=== PATIENT | female | born 1950 | race Caucasian/White ===

== ENCOUNTER → 2019-05-03 10:49 | Outpatient (CLI) | payer SELFPAY ==
--- NOTE | 2019-05-03 10:53 | CT_ITS ---
PROCEDURE: CT HEART W CALCIUM SCORE CLINICAL HISTORY: SCREENING COMPARISON: No exams were available for comparison TECHNIQUE: Axial images obtained with sagittal and coronal reformats. All CT scans at the facility use one or more dose reduction, viz: automated exposure control, ma/kV adjustment per patient size (including targeted exams where dose is matched to indication, i.e. head), or iterative reconstruction technique. FINDINGS: Coronary artery calcium score is 398 indicating extensive plaque burden with very high cardiovascular disease risk. Incidental findings show some mild calcification overlying the left ventricle. There are scattered fibrotic changes with atelectasis in the lingula. There are degenerative changes of the thoracic spine. IMPRESSION: Very high cardiovascular disease risk Dictated by: Daniel Will MD 05/03/2019 18:09 Electronically signed by Daniel Will MD in [facility] 05/03/2019 18:09
== END ==
PROVIDERS: PCP Family Medicine; Visit Provider Internal Medicine Cardiovascular Disease
DX: Z13.6 Encounter for screening for cardiovascular disorders (principal)
CPT/HCPCS: 75571